=== PATIENT | male | born 1970 | race American Indian/Alaskan Native ===

== ENCOUNTER 2019-10-23 01:36 | Emergency (ER) | payer SELFPAY ==
[2019-10-23 01:44] VITALS: BP 148/79
--- NOTE | 2019-10-23 02:20 | Emergency Department Report ---
Chief Complaint: Medical Clearance Stated Complaint: MED REFILL Time Seen by Provider: 10/23/19 01:56 - HPI History of Present Illness: Patient is a 49-year-old male who presents emergency room stating he has hyperpigmentation to the face and neck. He states that he needs a "cream" for this hyperpigmentation. pt reports he was diagnosed with lymphadenitis and took clindamycin and completed the course. He states he then noticed darkening of his skin. Denies any rash, itching, blisters, facial swelling, any other symptoms. Vitals are stable Patient is in no acute distress Normal oropharynx, normal TMs and canals, no facial swelling, hyperpigmentation of the face and neck, normal heart sounds, normal breath sounds bilaterally without wheezes Rales rhonchi or stridor, no signs of rash Patient is presenting with a non-medical emergency at this time Will refer patient to a package crimper and have patient see his primary care physician Advised patient to return to the emergency room for any new or worsening symptoms - Exam Vital Signs: Vital Signs 10/23/19 01:40 Temperature 98.5 F Pulse Rate 79 Respiratory 20 Rate Blood Pressure 148/79 O2 Sat by Pulse 98 Oximetry MSE screening note: Focused history and physical exam performed. ED Disposition for MSE Clinical Impression: Hyperpigmentation Disposition: Z-07 MED SCREENING EXAM-LEFT Is pt being admited?: No Does the pt Need Aspirin: No Condition: Stable Additional Instructions: Please follow-up with a package crimper and a primary care doctor in the next 2-3 days. Return to the emergency room for any new or worsening symptoms. [facility] Dr. Martin Florence [address] [place] [phone] follow up in 2-3 days Referrals: GERTRUDE QUINN MD [Staff Physician] - 2-3 Days your, primary care doctor [Other] - 2-3 Days Time of Disposition: 02:21 Print Language: CYPRIOT
== END 2019-10-23 02:25 | disposition left against medical advice (07) ==
LOC: ED 01:36
DX: L81.9 Disorder of pigmentation, unspecified (principal)
CPT/HCPCS: 99281

== ENCOUNTER 2021-07-03 12:41 | Emergency (ER) | payer OTHER ==
[2021-07-03] MEDS ORDERED: ASPIRIN 325 MG TAB PO ONE (13:12)
[2021-07-03 13:13] VITALS: BP 120/69
--- NOTE | 2021-07-03 13:57 | XRay Report ---
CHEST 2 VIEWS INDICATION / CLINICAL INFORMATION: Chest pain. COMPARISON: None available. FINDINGS: SUPPORT DEVICES: None. HEART / MEDIASTINUM: The heart size and pulmonary vasculature are normal. The aorta is normal in theresa marcos. LUNGS / PLEURA: There is a small calcified granuloma in the left upper lobe medially. The lungs are o therwise clear. No pleural abnormality. No pneumothorax. ADDITIONAL FINDINGS: No significant additional findings. IMPRESSION: No acute findings. Signer Name: Reji Barbour MD Signed: 07/03/2021 1:53 PM Workstation Name: [id number]
[2021-07-03 15:26] LABS: Basophils % (Auto) 0.3 % (0.0-1.8); Eosinophils # (Auto) 0.1 K/mm3 (0.0-0.4); Hematocrit 42.2 % (35.5-45.6); Hemoglobin 13.7 gm/dl (11.8-15.2); Lymphocytes # (Auto) 2.1 K/mm3 (1.2-5.4); Mean Corpuscular HGB Conc 33 % (32-34); Mean Corpuscular Volume 86 fl (84-94); Monocytes # (Auto) 0.6 K/mm3 (0.0-0.8); Monocytes % (Auto) 5.7 % (0.0-7.3); Red Blood Count 4.94 M/mm3 (3.65-5.03); Red Cell Distribution Width 14.6 % (13.2-15.2)
[2021-07-03 15:30] LABS: Platelet Count 92 K/mm3 (140-440)
[2021-07-03 15:53] LABS: Alanine Aminotransferase 22 units/L (7-56); Albumin 3.9 g/dL (3.9-5); BUN/Creatinine Ratio 13; Blood Urea Nitrogen 10 mg/dL (9-20); Calcium 8.9 mg/dL (8.4-10.2); Hemolysis Index 5
--- NOTE | 2021-07-03 17:17 | Emergency Department Report ---
ED General Adult HPI - General Chief complaint: Chest Pain Stated complaint: chest pain Time Seen by Provider: 07/03/21 17:05 Source: patient Mode of arrival: Ambulatory Limitations: No Limitations - History of Present Illness Initial comments: 51-year-old male patient presents to the emergency department complaints of chest pain radiating to his left arm for approximately 2 weeks. Patient describes the pain as "burning," worse after eating, lasting for approximately 1-2 days at a time before resolving spontaneously. Patient experienced similar symptoms on a prior occasion with spontaneous resolution. He took one of his friend's "vitamins" which provided transient relief. States he does not take any medication on a daily basis. Also endorses intermittent cough and bilateral lower extremity edema. Denies fever, chills, shortness of breath, palpitations, nausea, vomiting, syncope, dizziness. Denies all other complaints at this time. Severity scale (0 -10): 7 - Related Data Previous Rx's Medication Instructions Recorded Last Taken Type Famotidine [Pepcid] 20 mg PO BID 14 Days tablet 07/03/21 Unknown Rx Omeprazole 20 mg PO DAILY 14 Days capsule. 07/03/21 Unknown Rx Allergies Allergy/AdvReac Type Severity Reaction Status Date / Time No Known Allergies Allergy Unverified 07/03/21 13:10 ED Review of Systems ROS: Stated complaint: CP/HEADACHE Other details as noted in HPI Other: GENERAL: Negative for fever, chills, weight change, anorexia, fatigue. ENT: Negative for ear pain, difficulty hearing, sore throat, nasal congestion, epistaxis. CARDIOVASCULAR: Positive for chest pain and lower extremity swelling PULMONARY: Positive for cough. GASTROINTESTINAL: Negative for abdominal pain, nausea, vomiting, diarrhea, constipation. MUSCULOSKELETAL: Negative for joint pain, joint swelling, myalgias, back pain, neck pain. NEUROLOGICAL: Negative for headache, seizure, syncope, paresthesias, weakness. INTEGUMENTARY: Negative for erythema, rash, diaphoresis, laceration, ecchymosis. HEMATOLOGICAL: Negative for hemoptysis, hematemesis, hematochezia, hematuria. PSYCHIATRIC: Negative for hallucinations, suicidal ideation, homicidal ideation, anxiety, depression. ED Past Medical Hx - Past Medical History Previous Medical History?: No Additional medical history: hodgkins lyphodentitis - Surgical History Past Surgical History?: No - Social History Smoking Status: Never Smoker Substance Use Type: None - Medications Home Medications: Home Medications Medication Instructions Recorded Confirmed Last Taken Type Famotidine [Pepcid] 20 mg PO BID 14 Days tablet 07/03/21 Unknown Rx Omeprazole 20 mg PO DAILY 14 Days capsule. 07/03/21 Unknown Rx ED Physical Exam - General Limitations: No Limitations - Other Other exam information: General: Awake and alert. No acute distress. Head: Atraumatic, normocephalic. Eyes: EOMI. Pupils are equal and round. Normal sclera and conjunctiva. ENT: Oral mucosa is moist. Normal pharyngeal exam. Neck: Supple. No lymphadenopathy. Pulmonary: No respiratory distress. Clear to auscultation bilaterally. Cardiac: Regular rate and rhythm. Pulses are palpable and equal bilaterally. No lower extremity cyanosis. Bilateral pretibial pitting edema. Skin: Warm and dry. No rashes. Abdomen: Soft, non-tender, non-protuberant. No guarding, rigidity, or rebound. Bowel sounds are normal. No organomegaly or masses noted. Back: Normal alignment. No CVA tenderness. Extremities: Symmetrical. Full range of motion intact. Neurological: Alert and oriented, appropriately interactive, no focal deficits. Psych: Cooperative. Appropriate mood and affect. Speech is evenly metered. Thoughts are logically construed. ED Course Vital Signs 07/03/21 07/03/21 07/03/21 13:11 18:01 19:30 Temperature 99.8 F H Pulse Rate 97 H 102 H 87 Respiratory 18 17 Rate Blood Pressure 120/69 [Right] O2 Sat by Pulse 96 99 Oximetry ED Medical Decision Making - Lab Data Result diagrams: 07/03/21 14:51 07/03/21 14:51 - EKG Data 07/03/21 17:08 EKG shows sinus tachycardia with a ventricular rate of 102 bpm. Normal axis. Normal AK interval. Normal QT interval. Good R wave progression. Isolated T wave inversion noted to lead III. No old EKG available for comparison. Over read by attending emergency physician, who agrees with this interpretation. - Medical Decision Making Differential diagnosis including but not limited to: acute coronary syndrome, cardiac arrhythmia, pericarditis, pericardial effusion/cardiac tamponade, pulmonary embolism, pulmonary hypertension, congestive heart failure, pleural effusion, cardiomyopathy, esophagitis, GERD The patient is at low risk (0.9%-2.7%) of experiencing a major cardiac event within the next six weeks according to the HEART score guidelines. The patient has no known history of coronary artery disease and is therefore a candidate for risk stratification using the HEART pathway. It has been explained to the patient that the HEART score/pathway are adjunct decision-making tools and are not designed to replace clinical judgment. Shared decision making was implemented and the patient has agreed to undergo additional testing as recommended by the HEART pathway guidelines. On reevaluation, patient remains stable. Repeat troponin within normal limits. Tachycardia resolved without intervention. Repeat heart rate in the 80s. No hypoxia, no respiratory distress. Patient's postprandial "burning" pain is controlled after H2 blockers and GI cocktail. EKG without acute injury pattern. Initial and repeat troponin within normal limits. Patient is not an appropriate candidate for clinical PE rule out using PERC criteria - CTA of the chest within normal limits. No clinical indication for further diagnostic work- up on an emergent basis at this time. Etiology of patient's peripheral edema remains unclear however in the absence of compromised renal function, elevated BNP, signs/symptoms suggestive of venous thromboembolism, respiratory compromise, vascular compromise, or electrolyte disturbance, patient is an appropriate candidate for close outpatient follow-up with cardiology. Patient will be discharged home with H2 nicolas/PPI and referred to both primary care provider and plate molder for close outpatient follow-up. Patient expressed understanding and is agreeable to plan of care. Lifestyle modifications discussed. Strict return precautions provided. Additionally, it has been explained to the patient that the primary purpose of this evaluation was to identify whether or not an acute coronary syndrome was present, and that the results of todays evaluation do not reliably exclude underlying coronary artery disease. Patient expressed understanding and was given the opportunity to ask questions, all of which were satisfactorily answered prior to discharge home. Written instructions and appropriate prescriptions/referrals provided. Critical care attestation.: If time is entered above; I have spent that time in minutes in the direct care of this critically ill patient, excluding procedure time. ED Disposition Clinical Impression: Peripheral edema Chest pain Qualifiers: Chest pain type: unspecified Qualified Code(s): R07.9 - Chest pain, unspecified Disposition: - TO HOME OR SELFCARE Is pt being admited?: No Does the pt Need Aspirin: No Condition: Stable Instructions: Nonspecific Chest Pain, Adult, Gastroesophageal Reflux Disease, Adult, [id number] Additional Instructions: Take Pepcid and Omeprazole as directed. Avoid greasy/spicy/fatty/acidic foods, which may worsen your symptoms. Avoid alcohol, which may worsen your symptoms. Avoid lying flat within 3 hours of eating, which may worsen your symptoms. Reduce your dietary sodium intake. Exercise daily. Follow-up with primary care provider and plate molder this week. Call tomorrow to schedule an appointment. See referral information below. Return to the emergency department immediately for new or worsening symptoms. Specifically, return to the emergency department immediately for fever, cough, worsening chest pain, difficulty breathing, dehydration, mental status changes, palpitations, or any other concerns. Prescriptions: Omeprazole 20 mg PO DAILY 14 Days capsule. Famotidine [Pepcid] 20 mg PO BID 14 Days tablet Referrals: [facility] [Provider Group] - 3-5 Days KYLAH JACKSON MD [Staff Physician] - 3-5 Days DAYANNA SOTO MD [Staff Physician] - 3-5 Days [facility] [Provider Group] - 3-5 Days Forms: Work/School Release Form(ED) Time of Disposition: 19:29 HEART Score - HEART Score History: Slightly suspicious EKG: Non-specific Age: 45-65 Risk factors: 1-2 risk factors Troponin: Troponin T < 0.010 ng/mL (0.00-0.029) 07/03/21 16:43 Troponin: < normal limit HEART Score: 3
[2021-07-03] MEDS ORDERED: DICYCLOMINE 20 MG TAB PO ONE (17:21)
[2021-07-03] MEDS ORDERED: FAMOTIDINE 20 MG/2 ML INJ IV ONE (17:21)
[2021-07-03] MEDS ORDERED: LIDOCAINE VISCOUS 2% 15 ML ORAL LIQD PO ONE (17:21)
[2021-07-03] MEDS ORDERED: ALUM-MAG HYDROXIDE-SIMETHICONE 200-200-20MG/5ML ORAL LIQD 30 ML PO ONE (17:21)
--- NOTE | 2021-07-03 19:18 | Cat Scan Report ---
CTA CHEST WITH CONTRAST INDICATION / CLINICAL INFORMATION: chest pain, tachy, inferior T-wave inversion - PE. TECHNIQUE: Axial CT images were obtained through the chest after injection of IV contrast. 3 plane [place] P and/or 3D reconstructions were produced. All CT scans at this location are performed using CT dose reduction for ALARA by means of automated exposure control. COMPARISON: None available. FINDINGS: PULMONARY ARTERIES: No pulmonary emboli. THORACIC AORTA: No significant abnormality. HEART: No significant abnormality. CORONARY ARTERY CALCIFICATION: None. MEDIASTINUM / [place]: No significant abnormality. PLEURA: No pleural effusion. No pneumothorax. LUNGS: No acute air space or interstitial disease. ADDITIONAL FINDINGS: None. UPPER ABDOMEN: No acute findings. SKELETAL STRUCTURES: No significant osseous abnormality. IMPRESSION: 1. No CT evidence for pulmonary embolism. 2. No acute findings. Signer Name: Jarvis Ag MD Signed: 07/03/2021 7:13 PM Workstation Name: [id number]
--- NOTE | 2021-07-04 10:09 | Electrocardiograph Report ---
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
== END 2021-07-03 19:30 | disposition home or self-care (01) ==
LOC: ED 12:41
DX: R07.9 Chest pain, unspecified (principal); R60.9 Edema, unspecified; C81.70 Other Hodgkin lymphoma, unspecified site
CPT/HCPCS: 36415; 71046; 71275; 80053; 83735; 83880; 84484; 85025; 93005; 96374; 99284; Q9967